=== PATIENT | male | born 1955 | race African-American/Black ===

== ENCOUNTER 2025-04-23 14:44 | Inpatient (IN) | payer MEDICARE, OTHER ==
[~2025-04-23] VITALS: Ht 180.3 cm; Wt 63.5 kg
[2025-04-23 16:00] VITALS: BP 112/74; TEMP 98.7; O2SAT 98
[2025-04-23] MEDS ORDERED: ACETAMINOPHEN 325 MG TABLET PO PRN (16:00)
[2025-04-23] MEDS ORDERED: QUETIAPINE FUMARATE 25 MG TABLET PO PRN (16:00)
[2025-04-23] MEDS ORDERED: MAGNESIUM HYDROXIDE 30 ML UDC PO PRN (16:00)
[2025-04-23] MEDS ORDERED: MAG HYDROX/AL HYDROX/SIMETH 30 ML UDC PO PRN (16:00)
[2025-04-23 16:46] VITALS: BP 105/73; TEMP 98.7; O2SAT 98
[2025-04-23] MEDS: QUETIAPINE FUMARATE 25 MG TABLET PO PRN (21:24)
[2025-04-23 21:49] VITALS: BP 118/78; TEMP 97.8; O2SAT 98
[2025-04-24] MEDS: ZOLPIDEM TARTRATE 5 MG TABLET PO PRN (01:25)
[2025-04-24 08:00] VITALS: BP 115/90; TEMP 97.9; O2SAT 97
[2025-04-24] MEDS ORDERED: RISPERIDONE 0.25 MG TAB.RAPDIS PO SCH (12:30)
[2025-04-24] MEDS: risperiDONE-M 0.5 MG TAB.RAPDIS PO SCH (12:58)
[2025-04-24] MEDS: DIVALPROEX SODIUM 250 MG TABLET.DR PO SCH (13:01)
[2025-04-24 16:00] VITALS: BP 100/75; TEMP 98.6; O2SAT 99
[2025-04-24 22:00] VITALS: BP 116/75; TEMP 97.6; O2SAT 95
[2025-04-25 08:00] VITALS: BP 114/77; TEMP 98.2; O2SAT 99
[2025-04-25 09:34] LABS: ASPARTATE AMINOTRANSFERASE 30.0 U/L (15-37); CALCIUM, SERUM 9.0 mg/dL (8.5-10.1); CREATININE 1.0 mg/dL (0.6-1.3); SODIUM SERUM 138.0 mmol/L (136-145); TOTAL PROTEIN, SERUM 7.7 g/dL (6.4-8.2); UREA NITROGEN, BLOOD 24.0 mg/dL (7-18)
[2025-04-25 09:38] LABS: LDL 74 mg/dL (0-99)
[2025-04-25 16:19] VITALS: BP 120/64; TEMP 98; O2SAT 98
[2025-04-25 20:00] VITALS: BP 122/62; TEMP 98.4; O2SAT 98
[2025-04-25] MEDS: RISPERIDONE 1 MG TAB.RAPDIS PO SCH (21:00)
[2025-04-26 08:19] VITALS: BP 97/77; TEMP 97.8; O2SAT 98
[2025-04-26 16:06] VITALS: BP 153/75; TEMP 98; O2SAT 98
[2025-04-26 18:09] VITALS: BP 130/90
[2025-04-26 20:49] VITALS: BP 117/89; TEMP 98.3; O2SAT 98
[2025-04-27 20:38] VITALS: BP 123/89; TEMP 98.3; O2SAT 97
[2025-04-28 17:03] VITALS: BP 138/87; TEMP 97.8; O2SAT 100
[2025-04-28 19:50] VITALS: BP 111/88; TEMP 97.9; O2SAT 100
[2025-04-28] MEDS: DIVALPROEX SODIUM 250 MG TABLET.DR PO SCH (20:53)
[2025-04-29 16:00] VITALS: BP 107/63; TEMP 98; O2SAT 98
[2025-04-29 20:16] VITALS: BP 132/90; TEMP 98; O2SAT 98
[2025-04-30 08:00] VITALS: BP 141/97; TEMP 98.7; O2SAT 98
[2025-04-30] MEDS: OLANZAPINE 10 MG VIAL IM PRN (11:14)
[2025-04-30 16:00] VITALS: BP 112/84; TEMP 98.6; O2SAT 97
[2025-04-30 20:00] VITALS: BP 118/90; TEMP 98.4; O2SAT 97
[2025-05-01 08:00] VITALS: BP 126/82; TEMP 97.9; O2SAT 100
[2025-05-01] MEDS: RISPERIDONE 1 MG TAB.RAPDIS PO SCH (13:22)
[2025-05-01] MEDS ORDERED: OLANZAPINE 10 MG VIAL IM PRN (14:00)
[2025-05-01 16:00] VITALS: BP 135/98; TEMP 98.8; O2SAT 99
[2025-05-01 20:03] VITALS: BP 139/89; TEMP 98.6; O2SAT 100
[2025-05-02 08:00] VITALS: BP 125/80; TEMP 98.1; O2SAT 95
[2025-05-02 16:00] VITALS: BP 128/83; TEMP 98; O2SAT 97
[2025-05-02] MEDS: RISPERIDONE 1 MG TAB.RAPDIS PO SCH (21:07)
[2025-05-02 21:30] VITALS: BP 122/79; TEMP 98; O2SAT 98
[2025-05-03 08:00] VITALS: BP 104/81; TEMP 97.8; O2SAT 99
[2025-05-03 16:00] VITALS: BP 113/72; TEMP 98; O2SAT 98
[2025-05-03 20:00] VITALS: BP 123/78; TEMP 97.9; O2SAT 100
[2025-05-03 20:16] VITALS: BP 123/78; TEMP 97.9; O2SAT 98
[2025-05-04 08:00] VITALS: BP 135/90; TEMP 98.2; O2SAT 97
[2025-05-04 15:57] VITALS: BP 137/82; TEMP 98.8; O2SAT 100
[2025-05-04 20:15] VITALS: BP 118/87; TEMP 98.2; O2SAT 100
[2025-05-05] MEDS: ZOLPIDEM TARTRATE 5 MG TABLET PO PRN (00:09)
[2025-05-05 08:31] VITALS: BP 114/79; TEMP 98.7; O2SAT 99
[2025-05-05] MEDS: PALIPERIDONE PALMITATE 234 MG/1.5 ML SYRINGE IM ONE (15:28)
[2025-05-05 16:00] VITALS: BP 133/75; TEMP 97.8; O2SAT 98
[2025-05-05 19:44] VITALS: BP 113/75; TEMP 97.9; O2SAT 99
[2025-05-05] MEDS: RISPERIDONE 1 MG TAB.RAPDIS PO SCH (20:42)
[2025-05-06 08:00] VITALS: BP 132/71; TEMP 97.8; O2SAT 98
[2025-05-06] MEDS: DIVALPROEX SODIUM 250 MG TABLET.DR PO SCH (14:13)
[2025-05-06 16:08] VITALS: BP 119/79; TEMP 97.8; O2SAT 100
[2025-05-06 19:49] VITALS: BP 120/64; TEMP 98.1; O2SAT 100
[2025-05-06] MEDS: DIVALPROEX SODIUM 500 MG TABLET.DR PO SCH (21:09)
[2025-05-07 16:00] VITALS: BP 119/86; TEMP 97.9; O2SAT 97
[2025-05-07 20:00] VITALS: BP 116/73; TEMP 98.2; O2SAT 96
[2025-05-08 08:00] VITALS: BP 129/85; TEMP 98.2; O2SAT 99
[2025-05-08 16:00] VITALS: BP 122/81; TEMP 97.7; O2SAT 99
[2025-05-08 20:00] VITALS: BP 125/78; TEMP 98.7; O2SAT 98
[2025-05-09 08:00] VITALS: BP 129/76; TEMP 97.8; O2SAT 98
[2025-05-09] MEDS: PALIPERIDONE PALMITATE 156 MG/ML SYRINGE IM ONE (09:32)
[2025-05-09 16:00] VITALS: BP 100/54; TEMP 97.7; O2SAT 96
[2025-05-09 20:30] VITALS: BP 121/70; TEMP 98.2; O2SAT 98
== END 2025-05-10 11:15 | DRG 885 ==
LOC: ER 15:00 → GPS 15:10
PROVIDERS: ADMIT Psychiatry & Neurology Psychiatry; ATTEND Nurse Practitioner Family
DX: F25.9 Schizoaffective disorder, unspecified (principal); Z59.00 Homelessness unspecified; E44.1 Mild protein-calorie malnutrition; L97.418 Non-pressure chronic ulcer of right heel and midfoot with other specified severity; G93.40 Encephalopathy, unspecified; Z68.1 Body mass index [BMI] 19.9 or less, adult; F29 Unspecified psychosis not due to a substance or known physiological condition; F31.9 Bipolar disorder, unspecified; E88.09 Other disorders of plasma-protein metabolism, not elsewhere classified; Z87.891 Personal history of nicotine dependence; E11.40 Type 2 diabetes mellitus with diabetic neuropathy, unspecified; E11.51 Type 2 diabetes mellitus with diabetic peripheral angiopathy without gangrene; F20.0 Paranoid schizophrenia; Z73.6 Limitation of activities due to disability; I70.234 Atherosclerosis of native arteries of right leg with ulceration of heel and midfoot; Z91.199 Patient's noncompliance with other medical treatment and regimen due to unspecified reason; Z79.899 Other long term (current) drug therapy; E11.621 Type 2 diabetes mellitus with foot ulcer
CPT/HCPCS: 36415; 73630-TC; 80053-TC; 80061-TC; 80164-TC; J2426; J3490

== ENCOUNTER 2025-06-06 19:03 | Inpatient (IN) | payer MEDICARE, OTHER ==
[~2025-06-06] VITALS: Ht 170.2 cm; Wt 72.6 kg
[2025-06-06] MEDS ORDERED: OLANZAPINE 10 MG VIAL IM ONE (19:32)
[2025-06-06] MEDS: OLANZAPINE 10 MG VIAL IM ONE (19:34)
[2025-06-06 19:49] LABS: PLATELET COUNT (AUTO) 235 K/uL (150-450); RED BLOOD CELL COUNT(AUTO) 3.89 MIL/uL (4.5-6.0); RED CELL DISTRIBUTION WIDTH 16.0 % (11.5-15.0); WHITE BLOOD COUNT (AUTO) 6.8 K/uL (4.3-11.0)
[2025-06-06 20:01] LABS: CALCIUM, SERUM 8.8 mg/dL (8.5-10.1); CREATININE 0.9 mg/dL (0.6-1.3); SODIUM SERUM 141 mmol/L (136-145); UREA NITROGEN, BLOOD 20 mg/dL (7-18)
[2025-06-06 20:03] LABS: ASPARTATE AMINOTRANSFERASE 22 U/L (15-37); TOTAL PROTEIN, SERUM 7.4 g/dL (6.4-8.2)
[2025-06-06 20:54] LABS: APPEARANCE,URINE CLEAR (CLEAR); BLOOD, URINE NEGATIVE Ery/uL (NEGATIVE); LEUKOCYTE ESTERASE ,URINE NEGATIVE (NEGATIVE); NITRITE, URINE NEGATIVE (NEGATIVE); UGLUCOSE NEGATIVE (NEGATIVE)
[2025-06-06 20:58] LABS: LYMPHOCYTES % (MANUAL) 35 % (16-48); NEUTROPHILS % (MANUAL) 46 (42-76)
[2025-06-06 20:59] LABS: EOSINOPHILS % (MANUAL) 4 % (0-4); MONOCYTES % (MANUAL) 15 % (0-11.0); PLATELET ESTIMATE ADEQUATE
[2025-06-06 21:05] LABS: AMPHETAMINE, URINE NEGATIVE (NEGATIVE); BARBITURATE, URINE NEGATIVE (NEGATIVE); BENZODIAZEPINE, URINE NEGATIVE (NEGATIVE); CANNABINOID, URINE NEGATIVE (NEGATIVE); COCCAINE, URINE NEGATIVE (NEGATIVE); OPIATE, URINE NEGATIVE (NEGATIVE)
[2025-06-06 22:00] VITALS: O2SAT 99
[2025-06-07] MEDS ORDERED: MAGNESIUM HYDROXIDE 30 ML UDC PO PRN (03:00)
[2025-06-07] MEDS ORDERED: ZOLPIDEM TARTRATE 5 MG TABLET PO PRN (03:00)
[2025-06-07] MEDS ORDERED: MAG HYDROX/AL HYDROX/SIMETH 30 ML UDC PO PRN (03:00)
[2025-06-07] MEDS ORDERED: ACET325T53 PO (03:12)
[2025-06-07] MEDS ORDERED: BISA10SU61 RC (03:13)
[2025-06-07] MEDS ORDERED: ASCO500C18 PO (03:13)
[2025-06-07] MEDS ORDERED: DIVA500T2 PO ×2 (03:14→03:16)
[2025-06-07] MEDS ORDERED: DOCU250C14 PO (03:16)
[2025-06-07] MEDS ORDERED: MULT-1119 PO (03:18)
[2025-06-07] MEDS ORDERED: LACT10SO29 PO (03:18)
[2025-06-07] MEDS ORDERED: RISP2TAB5 PO (03:19)
[2025-06-07] MEDS ORDERED: ZINC220T4 PO (03:20)
[2025-06-07] MEDS: BLOOD SUGAR DIAGNOSTIC 1 EACH STRIP IN ONE (04:40)
[2025-06-07] MEDS ORDERED: LACTULOSE 10 G/15 ML UDC (PYXIS) PO PRN (05:30)
[2025-06-07] MEDS ORDERED: BISACODYL SUPP (10 MG) 10 MG/SUPP.RECT SUPP.RECT RC PRN (05:30)
[2025-06-07 08:00] VITALS: BP 120/82; TEMP 98.1; O2SAT 100
[2025-06-07] MEDS: ASCORBIC ACID 500 MG TABLET PO SCH (08:31)
[2025-06-07] MEDS: MULTIVITAMINS,THERAGRAN 1 UDTAB TABLET PO SCH (08:31)
[2025-06-07] MEDS: NICOTINE PATCH (14MG) 14 MG PATCH.TD24 TD SCH (08:31)
[2025-06-07] MEDS: ZINC SULFATE 220 MG CAPSULE PO SCH (08:31)
[2025-06-07] MEDS: QUETIAPINE FUMARATE 25 MG TABLET PO PRN (10:24)
[2025-06-07 16:00] VITALS: BP 119/65; TEMP 97.8; O2SAT 100
[2025-06-07] MEDS: DIVALPROEX SODIUM 500 MG TABLET.DR PO SCH ×2 (16:38→22:30)
[2025-06-07 20:24] VITALS: BP 120/73; TEMP 97.9; O2SAT 99
[2025-06-08 08:00] VITALS: BP 112/71; TEMP 98.1; O2SAT 98
[2025-06-08] MEDS: HYDROGEL DRESSING 90 GM TUBE TP SCH (08:34)
[2025-06-08] MEDS: OLANZAPINE 10 MG VIAL IM STA (13:00)
[2025-06-08 16:00] VITALS: BP 110/69; TEMP 97.9; O2SAT 99
[2025-06-08] MEDS: QUETIAPINE FUMARATE 25 MG TABLET PO PRN (16:34)
[2025-06-09] MEDS: ZOLPIDEM TARTRATE 5 MG TABLET PO PRN (01:05)
[2025-06-09 08:00] VITALS: BP 115/80; TEMP 98.6; O2SAT 98
[2025-06-09 16:00] VITALS: BP 116/83; TEMP 98.6; O2SAT 100
[2025-06-09 20:03] VITALS: BP 146/68; TEMP 98.7; O2SAT 100
[2025-06-10] MEDS: ZIPRASIDONE MESYLATE 20 MG/VIAL VIAL IM STA (03:31)
[2025-06-10 08:00] VITALS: BP 124/84; TEMP 98; O2SAT 100
[2025-06-10] MEDS: PALIPERIDONE PALMITATE 234 MG/1.5 ML SYRINGE IM ONE (10:07)
[2025-06-10 16:05] VITALS: BP 132/81; TEMP 97.8; O2SAT 99
[2025-06-10] MEDS: AMMONIUM LACTATE 227 GM BOTTLE TP SCH (16:17)
[2025-06-10 20:03] VITALS: BP 135/81; TEMP 97.8; O2SAT 100
[2025-06-10] MEDS: ACETAMINOPHEN 325 MG TABLET PO PRN (22:20)
[2025-06-11 08:00] VITALS: BP 135/76; TEMP 98.1; O2SAT 100
[2025-06-11 16:00] VITALS: BP 130/82; TEMP 98; O2SAT 100
[2025-06-11 21:46] VITALS: BP 137/94; TEMP 98.3; O2SAT 99
[2025-06-12 08:00] VITALS: BP 117/77; TEMP 97.8; O2SAT 97
[2025-06-12] MEDS: BENZTROPINE MESYLATE (1 MG) 1 MG TABLET PO ONE (10:10)
[2025-06-12] MEDS: BENZTROPINE MESYLATE (1 MG) 1 MG TABLET PO SCH (12:11)
[2025-06-12 16:00] VITALS: BP_SYST 130; BP_SYST 97; BP_DIAS 68; BP_DIAS 84; TEMP 97.9; O2SAT 95; O2SAT 97
[2025-06-13 08:00] VITALS: BP 121/86; TEMP 97.7; O2SAT 100
[2025-06-13] MEDS: DIVALPROEX SODIUM 250 MG TABLET.DR PO SCH (08:31)
[2025-06-13] MEDS: QUETIAPINE FUMARATE 25 MG TABLET PO SCH (11:08)
[2025-06-13] MEDS: BENZTROPINE MESYLATE (1 MG) 1 MG TABLET PO SCH (12:38)
[2025-06-13 16:00] VITALS: BP 132/81; TEMP 98.1; O2SAT 98
[2025-06-14 08:00] VITALS: BP 112/73; TEMP 97.1; O2SAT 96
[2025-06-14 16:00] VITALS: BP 113/75; TEMP 98.5; O2SAT 96
[2025-06-14 19:47] VITALS: BP 90/56; TEMP 98.5; O2SAT 96
[2025-06-15 07:58] VITALS: BP 116/84; TEMP 97.9; O2SAT 98
[2025-06-15 15:50] VITALS: BP 109/70; TEMP 97.7; O2SAT 99
[2025-06-15 20:33] VITALS: BP 110/63; TEMP 97.7; O2SAT 96
[2025-06-16 08:00] VITALS: BP 119/77; TEMP 98.7; O2SAT 100
[2025-06-16 16:00] VITALS: BP 130/84; TEMP 97.7; O2SAT 100
[2025-06-16] MEDS: QUETIAPINE FUMARATE 25 MG TABLET PO SCH (16:42)
[2025-06-16 20:01] VITALS: BP 128/84; TEMP 97.9; O2SAT 100
[2025-06-17 08:23] VITALS: BP 134/92; TEMP 97.9; O2SAT 99
[2025-06-17 16:00] VITALS: BP 121/74; TEMP 98.2; O2SAT 99
[2025-06-17 20:22] VITALS: BP 125/83; TEMP 98.3; O2SAT 99
[2025-06-18 08:30] VITALS: BP 115/75; TEMP 98.1; O2SAT 100
[2025-06-18 16:00] VITALS: BP 107/67; TEMP 98.1; O2SAT 97
[2025-06-18] MEDS: QUETIAPINE FUMARATE 25 MG TABLET PO SCH (16:25)
[2025-06-18 19:55] VITALS: BP 105/65; TEMP 98.2; O2SAT 99
[2025-06-19 08:00] VITALS: BP 102/87; TEMP 98.8; O2SAT 98
[2025-06-19 16:00] VITALS: BP 113/72; TEMP 98.2; O2SAT 100
[2025-06-19 20:00] VITALS: BP 95/63; TEMP 98.1; O2SAT 97
[2025-06-20 08:00] VITALS: BP 116/71; TEMP 98.1; O2SAT 98
== END 2025-06-20 14:19 | DRG 885 ==
LOC: ER 19:09 → GPS 06-07 01:49
PROVIDERS: ADMIT Psychiatry & Neurology Psychosomatic Medicine; ATTEND Internal Medicine
DX: F20.0 Paranoid schizophrenia (principal); D63.8 Anemia in other chronic diseases classified elsewhere; F03.911 Unspecified dementia, unspecified severity, with agitation; F25.9 Schizoaffective disorder, unspecified; F03.92 Unspecified dementia, unspecified severity, with psychotic disturbance; F03.918 Unspecified dementia, unspecified severity, with other behavioral disturbance; F29 Unspecified psychosis not due to a substance or known physiological condition; R79.89 Other specified abnormal findings of blood chemistry; L84 Corns and callosities; L60.3 Nail dystrophy; Z79.899 Other long term (current) drug therapy; Z87.891 Personal history of nicotine dependence; Z91.199 Patient's noncompliance with other medical treatment and regimen due to unspecified reason; S91.301A Unspecified open wound, right foot, initial encounter; X58.XXXA Exposure to other specified factors, initial encounter; Y93.9 Activity, unspecified; Y92.129 Unspecified place in nursing home as the place of occurrence of the external cause; Y99.9 Unspecified external cause status
CPT/HCPCS: 36415; 80048-TC; 80076-TC; 80164-TC; 82962-TC; 85027-TC; 87081-TC; 97116-TC; 97530-TC; A6248; J2426; J3486; J3490